=== PATIENT | female | born 1970 | race Two or more races ===

== ENCOUNTER → 2018-02-03 | Emergency (ER) | payer OTHER ==
[~2018-02-03] VITALS: Ht 157.5 cm; Wt 63.5 kg
[~2018-02-03] MED LIST: AZITHROMYCIN250 MG; NAPROXEN SODIU550 MG PO; [UNRECOGNIZED DRUG - OTHER]
== END | disposition left against medical advice (07) ==
LOC: ER 17:16
DX: Z53.20 Procedure and treatment not carried out because of patient's decision for unspecified reasons (principal)

== ENCOUNTER 2018-05-18 10:14 | Outpatient (CLI) | payer OTHER | END 2018-05-18 10:38 | disposition home or self-care (01) | LOC: MAMO-SONO 10:14 | DX: Z12.31 Encounter for screening mammogram for malignant neoplasm of breast (principal) ==

== ENCOUNTER 2018-12-05 11:17 | Outpatient (CLI) | payer OTHER | END 2018-12-05 17:00 | disposition home or self-care (01) | LOC: SONOGRAMA 11:17 | DX: R10.84 Generalized abdominal pain (principal) ==

== ENCOUNTER → 2018-12-05 11:26 | Outpatient (CLI) | payer OTHER | END | disposition home or self-care (01) | LOC: LAB 11:26 | DX: N30.00 Acute cystitis without hematuria (principal) ==

== ENCOUNTER → 2019-05-22 | Outpatient (CLI) | payer OTHER | END | disposition home or self-care (01) | LOC: MAMO-SONO 08:15 | DX: N60.11 Diffuse cystic mastopathy of right breast (principal); Z12.31 Encounter for screening mammogram for malignant neoplasm of breast; Z87.898 Personal history of other specified conditions ==

== ENCOUNTER 2020-05-23 14:34 | Outpatient (CLI) | payer OTHER | END 2020-05-23 14:48 | disposition home or self-care (01) | LOC: MAMO-SONO 14:34 | PROVIDERS: ATTEND Obstetrics & Gynecology | DX: N60.11 Diffuse cystic mastopathy of right breast (principal) ==

== ENCOUNTER → 2021-05-28 | Outpatient (CLI) | payer OTHER | END | disposition home or self-care (01) | LOC: MAMO-SONO 09:50 | PROVIDERS: ATTEND Surgery | DX: N60.11 Diffuse cystic mastopathy of right breast (principal); N60.12 Diffuse cystic mastopathy of left breast ==

== ENCOUNTER 2022-03-11 09:16 | Outpatient (CLI) | payer OTHER | END 2022-03-11 09:30 | disposition home or self-care (01) | LOC: TOM 09:16 | PROVIDERS: ATTEND Internal Medicine Gastroenterology | DX: R10.31 Right lower quadrant pain (principal) ==

== ENCOUNTER 2022-09-11 09:48 | Outpatient (CLI) | payer OTHER | END 2022-09-11 09:54 | disposition home or self-care (01) | LOC: RAD 09:48 | PROVIDERS: ATTEND Physical Medicine & Rehabilitation | DX: M54.59 Other low back pain (principal); M25.552 Pain in left hip ==

== ENCOUNTER 2022-09-23 11:52 | Outpatient (CLI) | payer OTHER | END 2022-09-23 12:06 | disposition home or self-care (01) | LOC: MRI 11:52 | PROVIDERS: ATTEND Physical Medicine & Rehabilitation | DX: M54.59 Other low back pain (principal) | CPT/HCPCS: 72148 ==

== ENCOUNTER 2023-05-06 12:14 | Emergency (ER) | payer OTHER ==
[~2023-05-06] VITALS: Ht 160 cm; Wt 63.5 kg
[2023-05-06 14:45] LABS: HEMATOCRIT 42.9 % (36.0-45.00); HEMOGLOBIN 14.3 g/dL (12.0-15.00); MEAN CORPUSCULAR HEMOGLOBIN 27.6 pg (27.00-32.0); MEAN CORPUSCULAR HGB CONC 33.3 g/dl (32.0-36.0); PLATELET COUNT 262 K/uL (150-450); RED BLOOD COUNT 5.17 M/uL (4.00-6.00); RED CELL DISTRIBUTION WIDTH 14.2 % (11.5-14.5)
[2023-05-06 15:14] LABS: ALBUMIN 4.2 gm/dL (3.4-5.0); BILIRUBIN TOTAL 0.39 mg/dL (0.3-1.2); CALCIUM 9.2 mg/dL (8.5-10.1); CREATININE SERUM 0.79 mg/dL (0.55-1.02); GFR 76.13; GLOBULINA 3.6 G/DL (2.4-3.5); POTASSIUM 3.79 mEq/L (3.5-5.1); TOTAL PROTEIN 7.8 gm/dL (6.4-8.2)
[2023-05-06] MEDS ORDERED: COZAAR25 MG PO (15:29)
== END 2023-05-06 15:31 | disposition home or self-care (01) ==
LOC: ER 12:14
PROVIDERS: General Practice
DX: R51.9 Headache, unspecified (principal); I10 Essential (primary) hypertension

== ENCOUNTER 2023-05-24 12:43 | Outpatient (CLI) | payer OTHER ==
[~2023-05-24 12:43] MED LIST changes: +COZAAR25 MG PO
== END 2023-05-24 12:55 | disposition home or self-care (01) ==
LOC: SONOGRAMA 12:43
PROVIDERS: ATTEND Obstetrics & Gynecology
DX: R10.84 Generalized abdominal pain (principal); R10.2 Pelvic and perineal pain

== ENCOUNTER 2023-05-31 08:02 | Outpatient (CLI) | payer OTHER | END 2023-05-31 08:11 | disposition home or self-care (01) | LOC: TOM 08:02 | PROVIDERS: ATTEND Internal Medicine Gastroenterology | DX: R10.31 Right lower quadrant pain (principal); Z88.0 Allergy status to penicillin ==

== ENCOUNTER 2023-06-02 13:07 | Outpatient (CLI) | payer OTHER | END 2023-06-02 13:25 | disposition home or self-care (01) | LOC: MAMO-SONO 13:07 | PROVIDERS: ATTEND Surgery | DX: I10 Essential (primary) hypertension (principal); N60.11 Diffuse cystic mastopathy of right breast; N60.12 Diffuse cystic mastopathy of left breast; Z12.31 Encounter for screening mammogram for malignant neoplasm of breast ==

== ENCOUNTER 2023-09-13 09:04 | Outpatient (CLI) | payer OTHER | END 2023-09-13 09:05 | disposition home or self-care (01) | LOC: NUCLEAR 09:04 | PROVIDERS: ATTEND Internal Medicine | DX: R00.2 Palpitations (principal) ==

== ENCOUNTER 2023-10-25 13:28 | Outpatient (CLI) | payer OTHER | END 2023-10-25 13:55 | disposition home or self-care (01) | LOC: SONOGRAMA 13:28 | PROVIDERS: ATTEND General Practice | DX: E04.2 Nontoxic multinodular goiter (principal) ==

== ENCOUNTER 2024-06-05 11:03 | Outpatient (CLI) | payer OTHER | END 2024-06-05 11:14 | disposition home or self-care (01) | LOC: MAMO-SONO 11:03 | PROVIDERS: ATTEND Obstetrics & Gynecology | DX: N60.11 Diffuse cystic mastopathy of right breast (principal) ==

== ENCOUNTER 2024-08-31 08:20 | Outpatient (CLI) | payer OTHER | END 2024-08-31 08:27 | disposition home or self-care (01) | LOC: TOM 08:20 | PROVIDERS: ATTEND Internal Medicine Gastroenterology | DX: R10.31 Right lower quadrant pain (principal) ==

== ENCOUNTER 2024-12-11 13:42 | Outpatient (CLI) | payer OTHER | END 2024-12-11 14:08 | disposition home or self-care (01) | LOC: RAD 13:42 | PROVIDERS: ATTEND Physical Medicine & Rehabilitation | DX: M79.672 Pain in left foot (principal) ==

== ENCOUNTER 2025-06-06 09:27 | Outpatient (CLI) | payer OTHER | END 2025-06-06 09:34 | disposition home or self-care (01) | LOC: MAMO-SONO 09:27 | PROVIDERS: ATTEND Surgery | DX: N60.11 Diffuse cystic mastopathy of right breast (principal); N60.12 Diffuse cystic mastopathy of left breast ==